=== PATIENT | female | born 1990 | race Caucasian/White ===

== ENCOUNTER 2016-05-03 05:01 | Inpatient (IN) | payer OTHER ==
[2016-05-03 06:02] LABS: ROM Internal QC QC Line Present
[2016-05-03 07:01] LABS: Hematocrit 40 % (35-47); Hemoglobin 13.9 g/dl (12.0-16.0); Mean Corpuscular HGB Conc 35 g/dl (31-36); Mean Corpuscular Hemoglobin 32 pg (27-31); Mean Corpuscular Volume 92 fL (80-97); Mean Platelet Volume 9 um3 (7.4-10.4); Red Blood Count 4.41 10^6/ul (4.0-5.4); Red Cell Distribution Width 13 % (10.5-15); White Blood Count 18.7 10^3/ul (3.5-10.8)
[2016-05-03] MEDS ORDERED: Promethazine INJ(RESTRICTED)* 25 MG/ML 1 ML VIAL IV ONE (07:45)
[2016-05-03] MEDS ORDERED: Nalbuphine* 20 MG/ML 1 ML VIAL IV ONE (07:45)
[2016-05-03] MEDS ORDERED: Promethazine TAB* 25 MG PO ONE (08:06)
[2016-05-03] MEDS ORDERED: Promethazine TAB* 25 MG ONE (08:09)
[2016-05-03] MEDS ORDERED: Betamethasone INJ* 6 MG/ML 5 ML VIAL (30 MG) IM ONE (08:30)
[2016-05-03] MEDS ORDERED: fentaNYL* 50 MCG/ML 2 ML VIAL (100 MCG VIAL) ONE (11:40)
[2016-05-03] MEDS ORDERED: Famotidine TAB* 20 MG PO PRN (12:00)
[2016-05-03] MEDS ORDERED: Sodium Citrate/Citric Acid* 15 ML UDC PO PRN (12:00)
[2016-05-03] MEDS ORDERED: EPHEDrine (Pressors)* 50 MG/ML VIAL IV PUSH PRN (12:00)
[2016-05-03] MEDS ORDERED: Phenylephrine IV* 40 MCG/ML 10 ML SYRINGE IV PUSH PRN (12:00)
[2016-05-03] MEDS ORDERED: OBEPIDURAL* 250 ML EPIDURAL SCH (12:00)
[2016-05-03] MEDS ORDERED: Oxytocin in LR* 20 UNITS/1,000 ML BAG IVPB ONE (12:05)
[2016-05-03] MEDS ORDERED: oxyCODONE/Acetamin 5/325 MG* TAB PO PRN (13:16)
[2016-05-03] MEDS ORDERED: Acetaminophen TAB* 325 MG PO PRN (13:16)
[2016-05-03] MEDS ORDERED: Dibucaine 1% 28.35 GM TUBE PR PRN (13:16)
[2016-05-03] MEDS ORDERED: Witch Hazel PAD* JAR TOPICAL PRN (13:16)
[2016-05-03] MEDS ORDERED: Glycerin ADULT SUPP PR PRN (13:16)
[2016-05-03] MEDS ORDERED: Oxytocin in LR* 20 UNITS/1,000 ML BAG IVPB SCH (14:00)
[2016-05-03] MEDS: Docusate CAP* 100 MG PO SCH ×2 (15:10→20:10)
[2016-05-03] MEDS: Ibuprofen TAB* 600 MG PO PRN ×2 (16:16→23:45)
[2016-05-03] MEDS ORDERED: Simethicone CHEW TAB* 80 MG PO SCH (17:30)
[2016-05-04 06:21] LABS: Hematocrit 34 % (35-47); Hemoglobin 11.9 g/dl (12.0-16.0); Mean Corpuscular HGB Conc 35 g/dl (31-36); Mean Corpuscular Hemoglobin 32 pg (27-31); Mean Corpuscular Volume 92 fL (80-97); Mean Platelet Volume 9 um3 (7.4-10.4); Red Blood Count 3.69 10^6/ul (4.0-5.4); Red Cell Distribution Width 13 % (10.5-15); White Blood Count 22.4 10^3/ul (3.5-10.8)
[2016-05-04 06:23] LABS: Add Diff/Slide Review? Manual Diff Added; Comments Flag Yes
[2016-05-04] MEDS: Ibuprofen TAB* 600 MG PO PRN ×3 (06:34→20:11)
[2016-05-04 06:55] LABS: Immature Granulocytes 1 % (0-9); Myelocytes % 1 % (0-1); Neutrophil % 88 % (38-83); RBC Morphology Normal (Normal)
[2016-05-04] MEDS ORDERED: Ferrous Gluconate TAB* 324 MG TAB PO SCH (09:00)
[2016-05-04] MEDS: Docusate CAP* 100 MG PO SCH ×3 (09:23→20:11)
[2016-05-05] MEDS: Ibuprofen TAB* 600 MG PO PRN ×2 (04:43→10:31)
[2016-05-05] MEDS: Docusate CAP* 100 MG PO SCH (07:59)
[2016-05-05 08:01] VITALS: BP 128/80
--- NOTE | 2016-05-05 11:50 | PTEDU ---
Patient Name: JOE ALEXIS SILVIO EDENJOE selected video: Never Ever Shake a Baby to view on 05/05/2016 at 11:49:17 AM [id number]
== END 2016-05-05 15:16 | disposition home or self-care (01) | DRG 775 ==
LOC: MCHOBOUT 05:01 → MCHOB 06:11
PROVIDERS: ADMIT Nurse Practitioner; ATTEND Nurse Practitioner
PROC: 10E0XZZ Delivery of Products of Conception, External Approach (ICD-10-PCS; principal; 2016-05-03)
PROC: 0HQ9XZZ Repair Perineum Skin, External Approach (ICD-10-PCS; 2016-05-03)
PROC: 4A1HXCZ Monitoring of Products of Conception, Cardiac Rate, External Approach (ICD-10-PCS; 2016-05-03)
DX: O69.3XX0 Labor and delivery complicated by short cord, not applicable or unspecified (principal); O60.14X0 Preterm labor third trimester with preterm delivery third trimester, not applicable or unspecified; O76 Abnormality in fetal heart rate and rhythm complicating labor and delivery; Z3A.36 36 weeks gestation of pregnancy; Z37.0 Single live birth; O70.0 First degree perineal laceration during delivery
CPT/HCPCS: 36415; 84112; 85025; 86850; 86900; 86901; 88307; A9270-GY; J0702; J2300; J3010

== ENCOUNTER 2017-06-03 18:20 | Emergency (ER) | payer BC, OTHER ==
--- NOTE | 2017-06-03 19:02 | UC ---
Throat Pain/Nasal Sesar HPI - HPI Summary HPI Summary: Pt presents with sinus pain/pressure/congestion and frontal headache that began 2 days ago. She says that she gets sinus infections 4-5 times a year and this feels the same. Last sinus infection with treatment was >30days ago. Has been taking OTC cold and flu medication with no relief. Denies fever, chills, cough, SOB - History of Current Complaint Stated Complaint: SINUS PAIN Time Seen by Provider: 06/03/17 18:58 Hx Obtained From: Patient Onset/Duration: Gradual Onset Severity: Moderate Pain Intensity: 5 Pain Scale Used: 0-10 Numeric - Allergies/Home Medications Allergies/Adverse Reactions: Allergies Allergy/AdvReac Type Severity Reaction Status Date / Time No Known Allergies Allergy Verified 06/03/17 19:09 Home Medications: Home Medications Fluticasone Propionate [Flonase Allergy Relief] 06/03/17 [History] Guaifen/Phenyleph/Acetaminophn [Tylenol Cold Head Congest Cplt] 06/03/17 [ History] Guaifen/Phenyleph/Acetaminophn [Tylenol Cold Head Congest Cplt] 06/03/17 [ History] PMH/Surg Hx/FS Hx/Imm Hx - Additional Past Medical History Additional PMH: None Previously Healthy: Yes - Surgical History Surgical History: None - Family History Known Family History: Positive: None - Social History Occupation: Employed Full-time Lives: With Family Alcohol Use: None Substance Use Type: None Smoking Status (MU): Never Smoked Tobacco - Immunization History Most Recent Influenza Vaccination: 2016 Most Recent Pneumonia Vaccination: unsure Review of Systems Constitutional: Negative Skin: Negative Eyes: Negative ENT: Nasal Discharge, Sinus Congestion, Sinus Pain/Tenderness Respiratory: Negative Cardiovascular: Negative Gastrointestinal: Negative Neurovascular: Negative Neurological: Negative Psychological: Negative All Other Systems Reviewed And Are Negative: Yes Physical Exam - Summary Physical Exam Summary: GENERAL: NAD. WDWN HEENT: NC/AT. Conjunctiva clear without inflammation or discharge. TMs intact , no bulging, erythema, or edema. Nasal mucosa mildly erythematous with clear discharge. TTP maxillary and frontal sinus. Posterior oropharynx without exudates, erythema, or tonsillar enlargement. Uvula midline. NECK: Supple without lymphadenopathy CHEST: CTAB. No r/r/w. No accessory muscle use. Breathing comfortably and in no distress. CV: RRR. Without m/r/g. Pulses intact. SKIN: No rashes, sores, lesions, or open wounds. NEURO: Alert. CN II-XII grossly intact. PSYCH: Age appropriate behavior. Triage Information Reviewed: Yes Throat Pain/Nasal Course/Dx - Course Course Of Treatment: Sinusitis. I had a long discussion with the pt that her symptoms are likely viral and that she should wait 7-10 days and try conservative/supportive care. She was adamant that this is a sinus infection and is requesting antibiotic therapy. - Differential Dx/Diagnosis Provider Diagnoses: Sinusitis Discharge - Sign-Out/Discharge Documenting (check all that apply): Discharge/Admit/Transfer - Discharge Plan Condition: Stable Disposition: HOME Prescriptions: ceFUROXime TAB(*) [Ceftin TAB 250 MG(*)] 250 mg PO BID #14 tab Patient Education Materials: Sinusitis (ED) Referrals: Heriberto Morgan MD [Primary Care Provider] - Additional Instructions: If you develop a fever, shortness of breath, chest pain, new or worsening symptoms - please call your PCP or go to the ED. Your blood pressure was high at todays visit. Please see your primary provider within 4 weeks for recheck and re-evaluation. - Billing Disposition and Condition Condition: STABLE Disposition: HOME
[2017-06-03 19:09] VITALS: BP 144/90
[2017-06-03] MEDS ORDERED: ceFUROXime TAB(*) 250 MG PO ONE (19:17)
== END 2017-06-03 19:50 | disposition home or self-care (01) ==
LOC: UCEAST 18:20
DX: J32.9 Chronic sinusitis, unspecified (principal)
CPT/HCPCS: 99212; G0463

== ENCOUNTER 2019-02-28 07:00 | Inpatient (IN) | payer BC, OTHER ==
[2019-02-28] MEDS ORDERED: Lactated Ringers 1000 ML Bag* 1,000 ML IV ONE ×2 (07:43→11:23)
[2019-02-28] MEDS ORDERED: Buffered Lidocaine 1% SYRIN* 1 ML/SYRINGE INTRADERM ONE (07:43)
--- NOTE | 2019-02-28 07:51 | HP ---
General Information - Reason for Visit 28yo, , IUP@39+1 here in early labor - General Information Maternal Age: 25 Grav: 1 Para: 0 SAB: 0 IEA: 0 Estimated Due Date: 05/30/16 Determined By: LMP Gestational Age in Weeks/Days: 39+1 Maternal Blood Type and Rh: A Positive - Results this Serology/RPR Result: Non-Reactive Rubella Result: Immune HBsAg Result: Negative HIV Result: Negative GBS Culture Result: Negative Past Medical History Delivery History: Hx Complicated Vaginal Delivery Delivery History Comment: G1: hx of PTB at 36 weeks Past Medical History Comment: Asthma Allergies Past Surgical History Comment: [place] teeth Sinus surgery Family History Comment: Father: lymphoma, HTN, hypercholesterolemia Mother: HTN Brother: HTN, asthma PGM: CAD Aunt: Breast cancer - Antepartal Records Antepartal Records: Reviewed, Uncomplicated Review of Systems Constitutional: Uncomfortable CV Complaint: No Respiratory: Shortness of Breath: No Gastrointestinal: No Nausea/Vomiting, Normal Bowel Movement Genitourinary: No Dysuria, No Bleeding, No Leaking Fluid Musculoskeletal: No Epigastric Pain, Contractions Neurological: No Headache, No Visual Changes Movement: Normal Exam Allergies/Adverse Reactions: Allergies No Known Allergies Allergy (Verified 06/03/17 19:09) temp 98.1, HR 96, RR 20, BP 132/90, O2 97% - Measurements Height: 5 ft 3 in Weight: 172 lb Body Mass Index (BMI): 30.4 Pre- Weight: 130 lb - Exam Breast: Breast Exam Deferred CVA: No CVA Tenderness Extremities: No Edema Heart: Normal Rhythm/Heart Sounds HEENT: No Significant Findings Lungs: Clear Bilaterally Rectal: Rectal Exam Deferred Reflexes: DTR 2+ Thyroid: No Thyromegaly - Abdominal Exam Abdomen Exam: Non-Tender - Ultrasound/Biophysical Profile Ultrasound Status: Not Done Targeted Exam Findings Estimated Weight: 7.5lbs Cervical Exam: 2cm, 3cm Effacement: 70% Station: -1 Presenting Part: Vertex Membrane Status: Intact Bleeding/Discharge: None EFM Findings - External Monitor Findings Baseline Heart Rate: 125 External Monitor Findings: Accelerations Present, No Pattern of Variable or Late Decelerations, Variability Moderate, Baseline Stable External Monitor Findings Comment: No evidence of metabolic acidemia Contractions: Regular, Moderate, 45-90 Seconds - q2-4 Assessment/Plan - Assessment 28yo, , IUP@39+1, in early labor GBS negative, RI, A+ Hx of 36 week delivery No evidence of metabolic acidemia Irregular contractions Cervical change from office VSS, afebrile Desires epidural - Plan Plan: Admit - Anticipate Vaginal Delivery Plan Comment: Admit to L&D Expectant management of early labor Epidural prn Anticipate active labor and - Date/Time of Admission Date of Admission: 02/28/19 Time of Admission: 08:00
[2019-02-28] MEDS ORDERED: Lactated Ringers 1000 ML Bag* 1,000 ML IV SCH ×4 (08:00→18:00)
[2019-02-28 09:06] LABS: ABS Eosinophils 0.1 10^3/ul (0-0.6); ABS Lymphocytes 1.9 10^3/ul (1.0-4.8); ABS Monocytes 0.5 10^3/ul (0-0.8); ABS Neutrophils 8.3 10^3/ul (1.5-7.7); Eosinophil % 0.6 %; Hematocrit 35 % (35-47); Hemoglobin 12.1 g/dL (12.0-16.0); Lymphocyte % 17.7 %; Mean Corpuscular HGB Conc 35 g/dL (31-36); Mean Corpuscular Hemoglobin 29 pg (27-31); Mean Corpuscular Volume 85 fL (80-97); Mean Platelet Volume 10.4 fL (7.4-10.4); Platelet Count 220 10^3/uL (150-450); Red Blood Count 4.13 10^6 /uL (3.70-4.87); Red Cell Distribution Width 14 % (10-15); White Blood Count 10.8 10^3/uL (3.5-10.8)
[2019-02-28 09:28] LABS: Urine Benzodiazepine Screen None Detected (None Detect); Urine Opiates Screen None Detected (None Detect)
--- NOTE | 2019-02-28 10:27 | PN ---
Progress Note - Progress Note Date of Service: 02/28/19 Note: S: Reports increasing discomfort, feels like she isn't getting relief with UCs O: B/P: 136/95, P: 86 FHR: baseline 120, moderate variability, +accelerations, no decelerations UCs: q 2-5, moderate VE: 5/80/-1. Membranes intact A: IUP at 39 0/7 weeks GBS negative Category I FHR, no evidence of metabolic acidemia Active labor P: Pt would like epidural, labs back and bolus infusing Dr. Knight paged and on the way Reassess once comfortable Anticipate SVB
[2019-02-28] MEDS ORDERED: OBEPIDURAL* 250 ML EPIDURAL ONE (10:30)
[2019-02-28] MEDS ORDERED: Lidocaine 2% w/ EPI 1:200,000* 20 ML SDV VIAL ONE ×2 (11:12→16:05)
[2019-02-28] MEDS ORDERED: Sodium Citrate/Citric Acid* 15 ML UDC PO PRN (11:23)
[2019-02-28] MEDS ORDERED: Phenylephrine 40 MCG/ML SYRINGE IV PUSH PRN ×2 (11:23)
[2019-02-28] MEDS ORDERED: Famotidine TAB* 20 MG PO PRN (11:23)
[2019-02-28] MEDS ORDERED: Lactated Ringers 1000 ML Bag* 500 ML IV PRN ×2 (11:23)
[2019-02-28] MEDS ORDERED: OBEPIDURAL* 250 ML EPIDURAL SCH (12:00)
--- NOTE | 2019-02-28 13:08 | PN ---
Progress Note - Progress Note Date of Service: 02/28/19 Note: S: Feeling comfortable s/p CEI placement. Legs are heavy. Reports some shakiness, some nausea O: B/P: 118/80, P: 82, T: 98.9 FHR: baseline 120, moderate variability, + accelerations, no decelerations UCs: q 3-4.5 min, moderate to palpation VE: 5/80/-1, bloody show noted A: iup at 39 0/7 weeks category I FHR, no evidence of metabolic acidemia Early active labor P: Encouraged position changes to promote labor progress, upright positioning, peanut ball Discussed possibility of AROM for augmentation if no progress with next cervical exam Reassess PRN Anticipate SVB
--- NOTE | 2019-02-28 14:36 | PN ---
Progress Note - Progress Note Date of Service: 02/28/19 Note: S: Reports she can now feel some UCs, not terribly painful O: VSS FHR: baseline 120, moderate variability, +accelerations, no decelerations VE: /-1. Bloody show. AROM to clear fluid A: IUP at 39 0/7 weeks Category I FHR, no evidence of metabolic acidemia Slow labor progress, active labor P: Encouraged position changes to promote labor progress Reassess PRN Anticipate SVB
--- NOTE | 2019-02-28 16:07 | PN ---
Progress Note - Progress Note Date of Service: 02/28/19 Note: S: Was in upright position, had a string of UCs and now more uncomfortable. Reports feeling more pain with UCs as well as back pain O: B/P: 126/84, P: 95, R: 20, T: 99.0 FHR: baseline 120, moderate variability, +accelerations, occasional variable deceleration UCs: q 1-4 min, moderate to palpation VE: 6.5/90/-1, bloody show, clear fluid A: IUP at 39 0/7 weeks Category II FHR, doubt metabolic acidemia Active labor P: Dr. Knight paged to discuss epidural bolus Continue with position changes Reassess PRN Anticipate SVB
[2019-02-28] MEDS ORDERED: Oxytocin in LR* 0 UNITS/0 ML BAG IVPB ONE (17:39)
[2019-02-28] MEDS ORDERED: Acetaminophen TAB* 325 MG PO PRN (17:49)
[2019-02-28] MEDS ORDERED: Witch Hazel PAD* JAR TOPICAL PRN (17:49)
[2019-02-28] MEDS ORDERED: Dibucaine 1% 28.35 GM TUBE PR PRN (17:49)
[2019-02-28] MEDS ORDERED: Glycerin ADULT SUPP PR PRN (17:49)
--- NOTE | 2019-02-28 18:16 | PROCNOTE ---
[facility] OB: Delivery Note - Delivery A Date of : 02/28/19 Time of : 17:29 [place] Sex: Female Score 1 Minute: 9 Score 5 Minutes: 9 Gestational Age in Weeks and Days at Delivery: 38 Weeks and 6 Days Delivery Method: Spontaneous Vaginal Did Patient attempt ?: N/A, No Previous Amniotic Fluid: Clear Estimated Blood Loss: 250 Anesthesia/Analgesia: CEI for Labor Anesthesia Comment: Dr. Knight Delivered By: Talisha Henriquez - Nursery Level of Nursery: Regular/Bedside - Perineum Perineal Injury: Abrasion Only - Not Repaired Perineal Repair: None - Additional Delivery Notes Additional Delivery Notes: at 39 1/7 weeks received CEI per request. Progressed to complete and complete following AROM to clear fluid. Began pushing at 1723 with good descent. Slow controlled delivery of vertex OA to MARY at 1729, shoulders followed easily with next push. Vigorous female infant to maternal abdomen, dried and stimulated, HR > 110, spontaneous cry. Bulb suctioned for copious secretions. Apgars 9 and 9. Spontaneous pepe placenta followed at 1741, membranes appeared intact. Fundus firm with massage. Perineum and vagina carefully inspected, small perineal abrasion noted, hemostatic and not repaired. EBL = 250 cc. initiated, infant weight pending for skin to skin. Mother and stable at time of note.
[2019-02-28] MEDS: Docusate CAP* 100 MG PO SCH (20:10)
[2019-02-28] MEDS: Ibuprofen TAB* 600 MG PO PRN (20:10)
[2019-02-28] MEDS ORDERED: Simethicone TAB* 80 MG TAB.CHEW PO SCH (21:00)
[2019-03-01] MEDS: Ibuprofen TAB* 600 MG PO PRN ×4 (02:10→21:07)
[2019-03-01 07:03] LABS: ABS Lymphocytes 2.1 10^3/ul (1.0-4.8); ABS Monocytes 0.6 10^3/ul (0-0.8); ABS Neutrophils 8.7 10^3/ul (1.5-7.7); Eosinophil % 0.3 %; Hematocrit 28 % (35-47); Hemoglobin 9.7 g/dL (12.0-16.0); Lymphocyte % 18.5 %; Mean Corpuscular HGB Conc 34 g/dL (31-36); Mean Corpuscular Hemoglobin 29 pg (27-31); Mean Corpuscular Volume 86 fL (80-97); Nucleated Red Blood Cells % 0.1; Platelet Count 181 10^3/uL (150-450); Red Blood Count 3.31 10^6 /uL (3.70-4.87); Red Cell Distribution Width 14 % (10-15); White Blood Count 11.6 10^3/uL (3.5-10.8)
[2019-03-01] MEDS: Ferrous Gluconate TAB* 324 MG TAB PO SCH ×2 (08:04→21:59)
[2019-03-01] MEDS: Docusate CAP* 100 MG PO SCH ×3 (08:04→21:07)
[2019-03-02] MEDS: Ferrous Gluconate TAB* 324 MG TAB PO SCH (07:53)
[2019-03-02] MEDS: Docusate CAP* 100 MG PO SCH (07:53)
[2019-03-02 08:14] VITALS: BP 133/90
== END 2019-03-02 11:22 | disposition home or self-care (01) | DRG 806 ==
LOC: MCHOBOUT 07:00 → MCHOB 07:49
PROVIDERS: ADMIT Midwife; ATTEND Midwife
PROC: 10E0XZZ Delivery of Products of Conception, External Approach (ICD-10-PCS; principal; 2019-02-28)
PROC: 4A1HXCZ Monitoring of Products of Conception, Cardiac Rate, External Approach (ICD-10-PCS; 2019-02-28)
PROC: 10907ZC Drainage of Amniotic Fluid, Therapeutic from Products of Conception, Via Natural or Artificial Opening (ICD-10-PCS; 2019-02-28)
DX: O71.82 Other specified trauma to perineum and vulva (principal); O87.2 Hemorrhoids in the puerperium; Z37.0 Single live birth; O90.81 Anemia of the puerperium; O76 Abnormality in fetal heart rate and rhythm complicating labor and delivery; Z3A.39 39 weeks gestation of pregnancy
CPT/HCPCS: 36415; 80307; 85025; 86850; 86900; 86901; A9270-GY; G0480

== ENCOUNTER 2021-12-25 03:38 | Inpatient (IN) ==
[2021-12-25] MEDS ORDERED: Lactated Ringers 1000 ml BAG 1,000 ML IV ONE (04:07)
[2021-12-25] MEDS ORDERED: Buffered Lidocaine 1% SYRIN 1 ml INTRADERM ONE (04:07)
[2021-12-25] MEDS ORDERED: Witch Hazel PAD JAR TOPICAL PRN (04:12)
[2021-12-25] MEDS ORDERED: Glycerin ADULT 2.4 gm SUPP PR PRN (04:12)
[2021-12-25] MEDS ORDERED: Dibucaine 1% OINT 28.35 GM TUBE PR PRN (04:12)
[2021-12-25] MEDS ORDERED: Oxytocin 10 UNITS/ML 1 ML VIAL IM ONE (04:12)
[2021-12-25] MEDS ORDERED: Albuterol HFA INHALER 8 gm MDI INH PRN (04:37)
[2021-12-25] MEDS ORDERED: Lactated Ringers 1000 ml BAG 1,000 ML IV SCH ×2 (05:00)
[2021-12-26 07:29] LABS: ABS Eosinophils 0.1 10^3/ul (0-0.6); ABS Lymphocytes 2.6 10^3/ul (1.0-4.8); ABS Monocytes 0.5 10^3/ul (0-0.8); ABS Neutrophils 7.1 10^3/ul (1.5-7.7); Eosinophil % 0.7 %; Hematocrit 33 % (35-47); Hemoglobin 11.5 g/dL (12.0-16.0); Lymphocyte % 24.7 %; Mean Corpuscular HGB Conc 34 g/dL (31-36); Mean Corpuscular Hemoglobin 31 pg (27-31); Mean Corpuscular Volume 89 fL (80-97); Mean Platelet Volume 9.3 fL (7.4-10.4); Nucleated Red Blood Cells % 0.1; Platelet Count 191 10^3/uL (150-450); Red Blood Count 3.76 10^6 /uL (3.70-4.87); Red Cell Distribution Width 13 % (10-15); White Blood Count 10.3 10^3/uL (3.5-10.8)
[2021-12-26 10:37] VITALS: BP 147/98
== END 2021-12-26 12:36 | disposition home or self-care (01) | DRG 560 ==
LOC: MCHOBOUT 03:38 → MCHOB 03:46
PROVIDERS: ADMIT Obstetrics & Gynecology; ATTEND Obstetrics & Gynecology